=== PATIENT | male | born 1985 | race African-American/Black ===

== ENCOUNTER 2018-10-03 20:40 | Emergency (ER) | payer MEDICAID ==
[~2018-10-03] VITALS: Ht 165.1 cm; Wt 102.2 kg
[2018-10-03 21:18] LABS: BASOPHILS % (AUTO) 0.4 % (0.0-2.0); EOSINOPHILS % (AUTO) 0.1 % (1.0-6.0); HEMATOCRIT 47.4 % (41-53); HEMOGLOBIN 15.5 g/dL (13.5-17.5); LYMPHOCYTES # (AUTO) 3.2 K/uL (1.0-4.8); LYMPHOCYTES % (AUTO) 37.2 % (22.0-44.0); MEAN CORPUSCULAR HEMOGLOBIN 28.4 pg (26.0-34.0); MEAN CORPUSCULAR HGB CONC 32.7 G/dL (31.0-37.0); MEAN CORPUSCULAR VOLUME 87 fL (80-100); MONOCYTES # (AUTO) 0.5 K/uL (0.1-1.0); MONOCYTES % (AUTO) 6.1 % (2.0-9.0); NEUTROPHILS # (AUTO) 4.9 K/uL (1.8-7.7); NEUTROPHILS % (AUTO) 56.2 % (40.0-70.0); PLATELET COUNT (AUTO) 186 K/uL (150-450); RED BLOOD CELL COUNT(AUTO) 5.46 MIL/uL (4.50-5.90); RED CELL DISTRIBUTION WIDTH 14.7 % (11.5-14.5)
[2018-10-03 21:25] LABS: ANION GAP 11 mmol/L (8-16); CALCIUM, TOTAL 9.1 mg/dL (8.8-10.5); CARBON DIOXIDE 24 mmol/L (22-29); CHLORIDE 102 mmol/L (98-107); CREATININE 1.26 mg/dL (0.60-1.30); GLOMERULAR FILTR. RATE CALC > 60 mL/min (>60); GLUCOSE,RANDOM 132 mg/dL (70-110); POTASSIUM 3.7 mmol/L (3.5-5.1); SODIUM SERUM 137 mmol/L (136-145); UREA NITROGEN, BLOOD 14 mg/dL (7-18)
[2018-10-03 21:29] LABS: PROTHROMBIN TIME 10.7 SEC (9.4-11.6)
[2018-10-03] MEDS ORDERED: SODIUM CHLORIDE 0.9% 2,000 ML IV ONE (21:30)
[2018-10-03] MEDS ORDERED: FLUMAZENIL 0.1 MG/ML 5 ML VIAL IVP ONE (21:30)
[2018-10-03] MEDS ORDERED: NALOXONE HCL 1 MG/ML 2 ML SYG IVP ONE (21:30)
[2018-10-03 21:31] LABS: APPEARANCE,URINE CLEAR (CLEAR); BILIRUBIN,URINE NEGATIVE (NEGATIVE); GLUCOSE, URINE (UA) NEGATIVE (NEGATIVE); KETONES,URINE NEGATIVE (NEGATIVE); LEUKOCYTE ESTERASE ,URINE NEGATIVE (NEGATIVE); NITRATE,URINE NEGATIVE (NEGATIVE); OCCULT BLOOD,URINE NEGATIVE (NEGATIVE); PH,URINE 5.5 (5.0-8.0); PROTEIN,URINE NEGATIVE (NEGATIVE); UROBILINOGEN,URINE 0.2 mg/dL (<=1.0)
[2018-10-03 21:33] LABS: AMPHET/METH SCREEN,URINE NEGATIVE (NEGATIVE); BARBITURATE SCREEN, URINE NEGATIVE (NEGATIVE); BENZODIAZEPINES SCREEN,URINE NEGATIVE (NEGATIVE); CANNABINOID SCREEN,URINE POSITIVE (NEGATIVE); COCAINE SCREEN,URINE NEGATIVE (NEGATIVE); METHADONE SCREEN, URINE NEGATIVE (NEGATIVE); OPIATE SCREEN,URINE NEGATIVE (NEGATIVE)
[2018-10-03 21:36] LABS: PHENCYCLIDINE SCREEN,URINE POSITIVE (NEGATIVE)
[2018-10-03 21:40] LABS: B-TYPE NATRIURETIC PEPTIDE < 5 pg/mL (0-100); LACTIC ACID 2.9 mmol/L (0.4-2.0)
[2018-10-03 21:50] LABS: ALANINE AMINOTRANSFERASE 31 U/L (12-78); ALKALINE PHOSPHATASE 47 U/L (46-116); ASPARTATE AMINOTRANSFERASE 29 U/L (15-37); BILIRUBIN,TOTAL 1.3 mg/dL (0.1-1.0); CREATINE KINASE, TOTAL ONLY 324 U/L (39-308); TOTAL PROTEIN, SERUM 7.9 g/dL (6.4-8.2)
[2018-10-03 22:00] LABS: SALICYLATE < 2.8 mg/dL (2.8-20.0)
[2018-10-03 22:13] LABS: ACETAMINOPHEN < 2 mcg/mL (10-30)
[2018-10-03 23:31] VITALS: BP 157/88
[2018-10-04 08:51] LABS: GLUCOSE,POINT OF CARE 116 MG/DL (70-110)
== END 2018-10-04 | disposition home or self-care (01) ==
LOC: EMS 20:41
DX: R41.82 Altered mental status, unspecified (principal); F10.129 Alcohol abuse with intoxication, unspecified; F16.10 Hallucinogen abuse, uncomplicated; Y90.6 Blood alcohol level of 120-199 mg/100 ml
CPT/HCPCS: 36415; 51702; 71045; 80053; 80307; 81003; 82550; 82962; 83605; 83880; 84484; 85025; 85610; 85730; 87040; 93005; 96361; 96374; 96375; 99291; G0480 ×2; G0481; J2310; J3490; J7030

== ENCOUNTER 2020-04-12 19:00 | Inpatient (IN) | payer MEDICAID ==
[~2020-04-12] VITALS: Ht 165.1 cm; Wt 108.0 kg
[2020-04-12] MEDS ORDERED: OLAN10TA3 PO (19:18)
[2020-04-12] MEDS ORDERED: VENL25TA47 PO (19:18)
[2020-04-12] MEDS ORDERED: DIVA-85 PO (19:18)
[2020-04-12] MEDS ORDERED: ZOLPIDEM TARTRATE 10 MG TABLET PO PRN (21:30)
[2020-04-12] MEDS ORDERED: LORazepam 2 MG TABLET PO PRN (21:30)
[2020-04-12 22:11] VITALS: BP 146/82
[2020-04-13] MEDS ORDERED: DOCUSATE SODIUM 100 MG CAPSULE PO PRN (07:45)
[2020-04-13] MEDS ORDERED: MAGNESIUM HYDROXIDE SUSPENSION 30 ML UDCUP PO PRN (07:45)
[2020-04-13] MEDS ORDERED: BACITRACIN 28.4 GM OINTMENT TP PRN (07:45)
[2020-04-13] MEDS ORDERED: LOPERAMIDE HCL 2 MG CAPSULE PO PRN (07:45)
[2020-04-13] MEDS ORDERED: BENZOCAINE/MENTHOL LOZENGE MM PRN (07:45)
[2020-04-13] MEDS ORDERED: MAG HYDROX/AL HYDROX/SIMETH ES 30 ML SUSPENSION UDCUP PO PRN (07:45)
[2020-04-13] MEDS ORDERED: OMEPRAZOLE 20 MG CAPSULE PO PRN (07:45)
[2020-04-13] MEDS ORDERED: IBUPROFEN 600 MG TABLET PO PRN (07:45)
[2020-04-13] MEDS ORDERED: ALBUTEROL SULFATE HFA 90 MCG/PUFF 8 GM INHALER IH PRN (07:45)
[2020-04-13] MEDS ORDERED: CloNIDine HCL 0.1 MG TABLET PO PRN (07:45)
[2020-04-13] MEDS ORDERED: ONDANSETRON HCL 4 MG TABLET PO PRN (07:45)
[2020-04-13] MEDS ORDERED: PETROLATUM,WHITE 28 GM JELLY TP PRN (07:45)
[2020-04-13] MEDS ORDERED: ACETAMINOPHEN 325 MG TABLET PO PRN (07:45)
[2020-04-13 08:00] VITALS: BP 135/88
[2020-04-13] MEDS ORDERED: OLAN5TAB2 PO (09:48)
[2020-04-13] MEDS ORDERED: VENL-67 PO (09:52)
[2020-04-13] MEDS ORDERED: VENL-68 PO (09:52)
[2020-04-13] MEDS: VENLAFAXINE HCL 75 MG ER CAPSULE PO SCH (10:20)
[2020-04-13] MEDS: VENLAFAXINE HCL 150 MG ER CAPSULE PO SCH (10:32)
[2020-04-13 16:00] VITALS: BP 139/87
[2020-04-13] MEDS: DIVALPROEX SODIUM 250 MG ER TABLET PO SCH (20:15)
[2020-04-13] MEDS: OLANZapine 5 MG TABLET PO SCH (20:16)
[2020-04-14] MEDS: VENLAFAXINE HCL 75 MG ER CAPSULE PO SCH (09:03)
[2020-04-14] MEDS: VENLAFAXINE HCL 150 MG ER CAPSULE PO SCH (09:03)
[2020-04-14 16:00] VITALS: BP 139/99
[2020-04-14] MEDS: DIVALPROEX SODIUM 250 MG ER TABLET PO SCH (20:02)
[2020-04-14] MEDS: OLANZapine 5 MG TABLET PO SCH (20:02)
[2020-04-15 09:13] VITALS: BP 127/70
[2020-04-15] MEDS: VENLAFAXINE HCL 150 MG ER CAPSULE PO SCH (10:01)
[2020-04-15] MEDS: VENLAFAXINE HCL 75 MG ER CAPSULE PO SCH (10:02)
[2020-04-15 19:23] VITALS: BP 115/78
[2020-04-15] MEDS: DIVALPROEX SODIUM 250 MG ER TABLET PO SCH (20:33)
[2020-04-15] MEDS: OLANZapine 5 MG TABLET PO SCH (20:33)
[2020-04-16] MEDS: VENLAFAXINE HCL 75 MG ER CAPSULE PO SCH (08:41)
[2020-04-16] MEDS: VENLAFAXINE HCL 150 MG ER CAPSULE PO SCH (08:41)
[2020-04-16 09:49] VITALS: BP 151/105
[2020-04-16 18:31] VITALS: BP 118/62
[2020-04-16] MEDS: DIVALPROEX SODIUM 250 MG ER TABLET PO SCH (20:19)
[2020-04-16] MEDS: OLANZapine 5 MG TABLET PO SCH (20:19)
[2020-04-17] MEDS: VENLAFAXINE HCL 150 MG ER CAPSULE PO SCH (08:53)
[2020-04-17] MEDS: VENLAFAXINE HCL 75 MG ER CAPSULE PO SCH (08:54)
[2020-04-17 09:02] VITALS: BP 150/98
[2020-04-17 16:00] VITALS: BP 153/69
[2020-04-17] MEDS: OLANZapine 5 MG TABLET PO SCH (20:35)
[2020-04-17] MEDS: DIVALPROEX SODIUM 250 MG ER TABLET PO SCH (20:35)
[2020-04-17] MEDS: HALOPERIDOL 5 MG TABLET PO PRN (23:57)
[2020-04-18 00:04] VITALS: BP 132/85
[2020-04-18 08:32] VITALS: BP 141/99
[2020-04-18] MEDS: VENLAFAXINE HCL 150 MG ER CAPSULE PO SCH (09:15)
[2020-04-18] MEDS: VENLAFAXINE HCL 75 MG ER CAPSULE PO SCH (09:16)
[2020-04-18 16:00] VITALS: BP 126/83
[2020-04-18] MEDS: OLANZapine 5 MG TABLET PO SCH (20:02)
[2020-04-18] MEDS: DIVALPROEX SODIUM 250 MG ER TABLET PO SCH (20:02)
[2020-04-19 08:00] VITALS: BP 103/57
[2020-04-19 08:40] VITALS: BP 105/57
[2020-04-19] MEDS: VENLAFAXINE HCL 150 MG ER CAPSULE PO SCH (09:28)
[2020-04-19] MEDS: VENLAFAXINE HCL 75 MG ER CAPSULE PO SCH (09:29)
[2020-04-19 16:52] VITALS: BP 150/90
[2020-04-19] MEDS: OLANZapine 5 MG TABLET PO SCH (20:19)
[2020-04-19] MEDS: DIVALPROEX SODIUM 250 MG ER TABLET PO SCH (20:19)
[2020-04-20] MEDS: VENLAFAXINE HCL 75 MG ER CAPSULE PO SCH (08:40)
[2020-04-20] MEDS: VENLAFAXINE HCL 150 MG ER CAPSULE PO SCH (08:40)
[2020-04-20 08:54] VITALS: BP 100/75
[2020-04-20 12:04] VITALS: BP 109/75
[2020-04-20] MEDS: HALOPERIDOL 5 MG TABLET PO PRN (12:30)
[2020-04-20 16:01] VITALS: BP 114/70
[2020-04-20] MEDS: DIVALPROEX SODIUM 250 MG ER TABLET PO SCH (20:43)
[2020-04-20] MEDS: OLANZapine 5 MG TABLET PO SCH (20:43)
[2020-04-21 08:00] VITALS: BP 139/99
[2020-04-21] MEDS: VENLAFAXINE HCL 75 MG ER CAPSULE PO SCH (08:10)
[2020-04-21] MEDS: VENLAFAXINE HCL 150 MG ER CAPSULE PO SCH (08:10)
[2020-04-21 16:25] VITALS: BP 108/88
[2020-04-21] MEDS: OLANZapine 5 MG TABLET PO SCH (20:20)
[2020-04-21] MEDS: DIVALPROEX SODIUM 250 MG ER TABLET PO SCH (20:20)
[2020-04-22] MEDS: VENLAFAXINE HCL 150 MG ER CAPSULE PO SCH (07:50)
[2020-04-22] MEDS: VENLAFAXINE HCL 75 MG ER CAPSULE PO SCH (07:50)
[2020-04-22 08:00] VITALS: BP 119/72
== END 2020-04-22 10:00 | disposition home or self-care (01) | DRG 885 ==
LOC: EMS 19:01 → 3EI 21:00
PROVIDERS: ADMIT Psychiatry & Neurology Psychiatry; ATTEND Psychiatry & Neurology Psychiatry
DX: F25.9 Schizoaffective disorder, unspecified (principal); R45.851 Suicidal ideations; I10 Essential (primary) hypertension; G47.00 Insomnia, unspecified; K59.00 Constipation, unspecified; F41.9 Anxiety disorder, unspecified; Z91.5 Personal history of self-harm
CPT/HCPCS: 93005

== ENCOUNTER 2020-05-09 10:41 | Inpatient (IN) | payer MEDICAID ==
[~2020-05-09] VITALS: Ht 165.1 cm; Wt 108.0 kg
[~2020-05-09 10:41] MED LIST: DIVA-85 PO; OLAN5TAB2 PO; VENL-67 PO; VENL-68 PO
[2020-05-09 12:25] LABS: BASOPHILS % (AUTO) 0.8 % (0.0-2.0); EOSINOPHILS % (AUTO) 0.5 % (1.0-6.0); HEMATOCRIT 47.2 % (41-53); HEMOGLOBIN 15.7 g/dL (13.5-17.5); LYMPHOCYTES # (AUTO) 2.5 K/uL (1.0-4.8); LYMPHOCYTES % (AUTO) 24.8 % (22.0-44.0); MEAN CORPUSCULAR HEMOGLOBIN 29.1 pg (26.0-34.0); MEAN CORPUSCULAR HGB CONC 33.2 G/dL (31.0-37.0); MEAN CORPUSCULAR VOLUME 88 fL (80-100); MONOCYTES # (AUTO) 0.7 K/uL (0.1-1.0); MONOCYTES % (AUTO) 7.2 % (2.0-9.0); NEUTROPHILS # (AUTO) 6.8 K/uL (1.8-7.7); NEUTROPHILS % (AUTO) 66.7 % (40.0-70.0); PLATELET COUNT (AUTO) 249 K/uL (150-450); RED BLOOD CELL COUNT(AUTO) 5.39 MIL/uL (4.50-5.90); RED CELL DISTRIBUTION WIDTH 15.4 % (11.5-14.5)
[2020-05-09 12:34] LABS: ANION GAP 12 mmol/L (8-16); CALCIUM, TOTAL 9.2 mg/dL (8.8-10.5); CARBON DIOXIDE 23 mmol/L (22-29); CHLORIDE 102 mmol/L (98-107); CREATININE 1.67 mg/dL (0.60-1.30); GLOMERULAR FILTR. RATE CALC 57 mL/min (>60); GLUCOSE,RANDOM 144 mg/dL (70-110); POTASSIUM 3.9 mmol/L (3.5-5.1); SODIUM SERUM 137 mmol/L (136-145); UREA NITROGEN, BLOOD 13 mg/dL (7-18)
[2020-05-09 13:37] LABS: AMPHET/METH SCREEN,URINE POSITIVE (NEGATIVE); BARBITURATE SCREEN, URINE NEGATIVE (NEGATIVE); BENZODIAZEPINES SCREEN,URINE NEGATIVE (NEGATIVE); CANNABINOID SCREEN,URINE POSITIVE (NEGATIVE); COCAINE SCREEN,URINE NEGATIVE (NEGATIVE); METHADONE SCREEN, URINE NEGATIVE (NEGATIVE); OPIATE SCREEN,URINE NEGATIVE (NEGATIVE)
[2020-05-09 13:39] LABS: PHENCYCLIDINE SCREEN,URINE NEGATIVE (NEGATIVE)
[2020-05-09] MEDS ORDERED: HALOPERIDOL 5 MG TABLET PO PRN (16:30)
[2020-05-09] MEDS: LORazepam 2 MG TABLET PO PRN (18:58)
[2020-05-09] MEDS: ZOLPIDEM TARTRATE 10 MG TABLET PO PRN (20:44)
[2020-05-09] MEDS ORDERED: PROMETHAZINE HCL 25 MG TABLET PO PRN (23:30)
[2020-05-09] MEDS ORDERED: ACETAMINOPHEN 325 MG TABLET PO PRN (23:30)
[2020-05-09] MEDS ORDERED: TUBERCULIN, PURIFIED PROTEIN DERIVATIVE 5 TU/0.1 ML SYRINGE ID ONE (23:30)
[2020-05-09] MEDS ORDERED: MAG HYDROX/AL HYDROX/SIMETH ES 30 ML SUSPENSION UDCUP PO PRN (23:30)
[2020-05-09] MEDS ORDERED: MAGNESIUM HYDROXIDE SUSPENSION 30 ML UDCUP PO PRN (23:30)
[2020-05-09] MEDS ORDERED: LOPERAMIDE HCL 2 MG CAPSULE PO PRN (23:30)
[2020-05-10] MEDS ORDERED: PETROLATUM,WHITE 28 GM JELLY TP PRN (00:30)
[2020-05-10] MEDS ORDERED: BACITRACIN 28 GM OINTMENT TP PRN (00:30)
[2020-05-10] MEDS ORDERED: DOCUSATE SODIUM 100 MG CAPSULE PO PRN (00:30)
[2020-05-10] MEDS ORDERED: IBUPROFEN 600 MG TABLET PO PRN (00:30)
[2020-05-10] MEDS ORDERED: ALBUTEROL SULFATE HFA 90 MCG/PUFF 8 GM INHALER IH PRN (00:30)
[2020-05-10] MEDS ORDERED: OMEPRAZOLE 20 MG CAPSULE PO PRN (00:30)
[2020-05-10] MEDS ORDERED: BENZOCAINE/MENTHOL LOZENGE PO PRN (00:30)
[2020-05-10 01:47] VITALS: BP 126/84
[2020-05-10] MEDS ORDERED: PNEUMOCOCCAL VACCINE POLYVALENT 0.5 ML VIAL [PPSV23] IM ONE (02:15)
[2020-05-10] MEDS: CloNIDine HCL 0.1 MG TABLET PO PRN (08:06)
[2020-05-10] MEDS: LORazepam 2 MG TABLET PO PRN ×2 (08:06→15:01)
[2020-05-10 08:24] LABS: CHOL/HDL RATIO 6.8 (4.2-7.3)
[2020-05-10 09:07] VITALS: BP 142/111
[2020-05-10 10:00] VITALS: BP 150/99
[2020-05-10 16:19] VITALS: BP 145/89
[2020-05-11] MEDS: LORazepam 2 MG TABLET PO PRN (04:02)
[2020-05-11 04:49] VITALS: BP 135/91
[2020-05-11] MEDS: RisperiDONE 1 MG TABLET PO SCH ×2 (08:29→16:16)
[2020-05-11] MEDS: VENLAFAXINE HCL 150 MG ER CAPSULE PO SCH (08:29)
[2020-05-11 08:45] LABS: ANION GAP 7 mmol/L (8-16); CALCIUM, TOTAL 9.1 mg/dL (8.8-10.5); CARBON DIOXIDE 29 mmol/L (22-29); CHLORIDE 100 mmol/L (98-107); CREATININE 1.38 mg/dL (0.60-1.30); GLOMERULAR FILTR. RATE CALC > 60 mL/min (>60); GLUCOSE,RANDOM 114 mg/dL (70-110); SODIUM SERUM 136 mmol/L (136-145); THYROID STIMULATING HORMONE 1.12 uIU/mL (0.36-3.74); UREA NITROGEN, BLOOD 21 mg/dL (7-18)
[2020-05-11 16:09] VITALS: BP 138/85
[2020-05-12 01:55] VITALS: BP 131/78
[2020-05-12] MEDS: RisperiDONE 1 MG TABLET PO SCH ×3 (09:00→16:43)
[2020-05-12 09:04] VITALS: BP 143/98
[2020-05-12] MEDS: VENLAFAXINE HCL 150 MG ER CAPSULE PO SCH (09:39)
[2020-05-12] MEDS: ZOLPIDEM TARTRATE 10 MG TABLET PO PRN (20:18)
[2020-05-13 06:17] VITALS: BP 130/79
[2020-05-13] MEDS: VENLAFAXINE HCL 150 MG ER CAPSULE PO SCH (08:16)
[2020-05-13] MEDS: RisperiDONE 1 MG TABLET PO SCH ×2 (08:17→16:43)
[2020-05-13 17:15] VITALS: BP 122/70
[2020-05-14 00:25] VITALS: BP 119/67
[2020-05-14] MEDS: ZOLPIDEM TARTRATE 10 MG TABLET PO PRN ×2 (01:15→21:10)
[2020-05-14] MEDS: VENLAFAXINE HCL 75 MG ER CAPSULE PO SCH (08:29)
[2020-05-14] MEDS: RisperiDONE 1 MG TABLET PO SCH ×2 (09:00→17:00)
[2020-05-14 16:42] VITALS: BP 124/71
[2020-05-15] MEDS: LORazepam 2 MG TABLET PO PRN (04:42)
[2020-05-15 05:00] VITALS: BP 130/91
[2020-05-15 08:15] VITALS: BP 130/94
[2020-05-15] MEDS: VENLAFAXINE HCL 75 MG ER CAPSULE PO SCH (08:21)
[2020-05-15] MEDS: RisperiDONE 1 MG TABLET PO SCH ×2 (08:24→17:00)
[2020-05-15 16:30] VITALS: BP 115/65
[2020-05-15] MEDS: ZOLPIDEM TARTRATE 10 MG TABLET PO PRN (21:02)
[2020-05-16 00:02] VITALS: BP 137/76
[2020-05-16] MEDS: LORazepam 2 MG TABLET PO PRN (00:42)
[2020-05-16] MEDS: VENLAFAXINE HCL 75 MG ER CAPSULE PO SCH (08:54)
[2020-05-16] MEDS: RisperiDONE 1 MG TABLET PO SCH ×2 (08:55→16:10)
[2020-05-16 09:15] VITALS: BP 130/75
[2020-05-16 16:00] VITALS: BP 128/89
[2020-05-16] MEDS: ZOLPIDEM TARTRATE 10 MG TABLET PO PRN (21:19)
[2020-05-17 00:31] VITALS: BP 132/77
[2020-05-17 02:10] VITALS: BP_SYST 138; BP_SYST 141; BP_DIAS 112; BP_DIAS 113
[2020-05-17] MEDS: CloNIDine HCL 0.1 MG TABLET PO PRN (02:11)
[2020-05-17 03:11] VITALS: BP 116/73
[2020-05-17] MEDS: VENLAFAXINE HCL 75 MG ER CAPSULE PO SCH (08:27)
[2020-05-17] MEDS: RisperiDONE 1 MG TABLET PO SCH (08:30)
[2020-05-17 10:46] VITALS: BP 131/82
[2020-05-17] MEDS: ZOLPIDEM TARTRATE 10 MG TABLET PO PRN (22:08)
[2020-05-18] VITALS: BP 122/75
[2020-05-18] MEDS: LORazepam 2 MG TABLET PO PRN ×2 (03:21→16:16)
[2020-05-18] MEDS: VENLAFAXINE HCL 75 MG ER CAPSULE PO SCH (08:36)
[2020-05-18 13:03] VITALS: BP 121/83
[2020-05-18 16:41] VITALS: BP 139/90
[2020-05-19] VITALS: BP 104/60
[2020-05-19] MEDS: ZOLPIDEM TARTRATE 10 MG TABLET PO PRN (02:51)
[2020-05-19] MEDS: VENLAFAXINE HCL 75 MG ER CAPSULE PO SCH (08:03)
[2020-05-19 08:12] VITALS: BP 143/83
[2020-05-19] MEDS: OMEGA-3/DHA/EPA/FISH OIL 1,000 MG CAPSULE PO SCH (09:00)
[2020-05-19 16:01] VITALS: BP 139/85
[2020-05-19] MEDS: SIMVASTATIN 10 MG TABLET PO SCH (20:13)
[2020-05-20 00:13] VITALS: BP 130/90
[2020-05-20] MEDS: ZOLPIDEM TARTRATE 10 MG TABLET PO PRN (00:20)
[2020-05-20 08:08] VITALS: BP 132/90
[2020-05-20] MEDS: VENLAFAXINE HCL 75 MG ER CAPSULE PO SCH (08:22)
[2020-05-20] MEDS: OMEGA-3/DHA/EPA/FISH OIL 1,000 MG CAPSULE PO SCH (08:22)
[2020-05-20] MEDS ORDERED: BUPR-93 PO (12:50)
[2020-05-20] MEDS ORDERED: RISP3TAB44 PO (12:50)
[2020-05-20] MEDS ORDERED: ROPI2TAB26 PO (12:50)
[2020-05-20] MEDS ORDERED: TEMA15CA PO (12:50)
[2020-05-20] MEDS ORDERED: LITH300CRT PO (12:50)
[2020-05-20 16:03] VITALS: BP 135/62
[2020-05-20] MEDS: SIMVASTATIN 10 MG TABLET PO SCH (19:50)
[2020-05-21 00:45] VITALS: BP 129/75
[2020-05-21] MEDS: ZOLPIDEM TARTRATE 10 MG TABLET PO PRN (02:19)
[2020-05-21] MEDS: OMEGA-3/DHA/EPA/FISH OIL 1,000 MG CAPSULE PO SCH (08:18)
[2020-05-21] MEDS: VENLAFAXINE HCL 75 MG ER CAPSULE PO SCH (08:19)
[2020-05-21 09:20] VITALS: BP 130/74
[2020-05-21 16:03] VITALS: BP 127/72
[2020-05-21] MEDS: SIMVASTATIN 10 MG TABLET PO SCH (20:11)
[2020-05-22] MEDS: ZOLPIDEM TARTRATE 10 MG TABLET PO PRN (00:08)
[2020-05-22 01:35] VITALS: BP 130/75
[2020-05-22] MEDS: VENLAFAXINE HCL 75 MG ER CAPSULE PO SCH (08:08)
[2020-05-22] MEDS: OMEGA-3/DHA/EPA/FISH OIL 1,000 MG CAPSULE PO SCH (08:08)
[2020-05-22 08:27] VITALS: BP 133/81
[2020-05-22 08:28] LABS: HEMOGLOBIN A1C 5.9 % (3.8-5.6)
[2020-05-22 08:41] LABS: ANION GAP 7 mmol/L (8-16); CALCIUM, TOTAL 9.4 mg/dL (8.8-10.5); CARBON DIOXIDE 29 mmol/L (22-29); CHLORIDE 100 mmol/L (98-107); CREATININE 1.31 mg/dL (0.60-1.30); GLOMERULAR FILTR. RATE CALC > 60 mL/min (>60); GLUCOSE,RANDOM 98 mg/dL (70-110); POTASSIUM 4.5 mmol/L (3.5-5.1); SODIUM SERUM 136 mmol/L (136-145); UREA NITROGEN, BLOOD 17 mg/dL (7-18)
[2020-05-22] MEDS ORDERED: SIMV-259 PO (14:19)
[2020-05-22] MEDS ORDERED: VENL-67 PO (14:19)
== END 2020-05-22 17:00 | disposition home or self-care (01) | DRG 750 ==
LOC: EMS 10:48 → B2S 16:23
PROVIDERS: ADMIT Psychiatry & Neurology Psychiatry; ATTEND Psychiatry & Neurology Psychiatry
DX: F25.1 Schizoaffective disorder, depressive type (principal); F15.10 Other stimulant abuse, uncomplicated; F12.10 Cannabis abuse, uncomplicated; N18.9 Chronic kidney disease, unspecified; I12.9 Hypertensive chronic kidney disease with stage 1 through stage 4 chronic kidney disease, or unspecified chronic kidney disease; R45.851 Suicidal ideations; E78.5 Hyperlipidemia, unspecified; K59.00 Constipation, unspecified; E78.00 Pure hypercholesterolemia, unspecified; G47.00 Insomnia, unspecified; F41.9 Anxiety disorder, unspecified; F19.10 Other psychoactive substance abuse, uncomplicated; Z91.5 Personal history of self-harm; Z72.0 Tobacco use
CPT/HCPCS: 83036; 84443; 87081; 87426; 90732; G0480

== ENCOUNTER 2020-08-04 11:47 | Emergency (ER) | payer MEDICAID ==
[~2020-08-04] VITALS: Ht 167.6 cm; Wt 86.4 kg
[~2020-08-04 11:47] MED LIST changes: -DIVA-85 PO; -OLAN5TAB2 PO; +SIMV-259 PO; -VENL-68 PO
[2020-08-04 11:49] VITALS: BP 144/94
[2020-08-04] MEDS ORDERED: VENLAFAXINE HCL 75 MG ER CAPSULE PO ONE (12:15)
[2020-08-04] MEDS ORDERED: LORazepam 1 MG TABLET PO ONE (12:15)
[2020-08-04] MEDS ORDERED: DIVALPROEX SODIUM 250 MG ER TABLET PO ONE (12:15)
[2020-08-04] MEDS ORDERED: OLANZapine 5 MG TABLET PO ONE (12:15)
== END 2020-08-04 14:12 | disposition home or self-care (01) ==
LOC: EMS 11:56
DX: F25.9 Schizoaffective disorder, unspecified (principal); R45.851 Suicidal ideations; F15.10 Other stimulant abuse, uncomplicated; I10 Essential (primary) hypertension; Z79.899 Other long term (current) drug therapy
CPT/HCPCS: Z7502; Z7610

== ENCOUNTER 2020-09-10 15:22 | Inpatient (IN) | payer MEDICAID ==
[~2020-09-10] VITALS: Ht 165.1 cm; Wt 99.3 kg
[2020-09-10 18:13] LABS: AMPHET/METH SCREEN,URINE POSITIVE (NEGATIVE); BARBITURATE SCREEN, URINE NEGATIVE (NEGATIVE); BENZODIAZEPINES SCREEN,URINE NEGATIVE (NEGATIVE); CANNABINOID SCREEN,URINE NEGATIVE (NEGATIVE); COCAINE SCREEN,URINE NEGATIVE (NEGATIVE); METHADONE SCREEN, URINE NEGATIVE (NEGATIVE); OPIATE SCREEN,URINE NEGATIVE (NEGATIVE); PHENCYCLIDINE SCREEN,URINE NEGATIVE (NEGATIVE)
[2020-09-10 19:08] LABS: BASOPHILS % (AUTO) 0.5 % (0.0-2.0); EOSINOPHILS % (AUTO) 0.9 % (1.0-6.0); HEMATOCRIT 43.9 % (41-53); HEMOGLOBIN 14.2 g/dL (13.5-17.5); LYMPHOCYTES # (AUTO) 2.6 K/uL (1.0-4.8); LYMPHOCYTES % (AUTO) 34.2 % (22.0-44.0); MEAN CORPUSCULAR HEMOGLOBIN 28.2 pg (26.0-34.0); MEAN CORPUSCULAR HGB CONC 32.4 G/dL (31.0-37.0); MEAN CORPUSCULAR VOLUME 87 fL (80-100); MONOCYTES # (AUTO) 0.6 K/uL (0.1-1.0); MONOCYTES % (AUTO) 8.1 % (2.0-9.0); NEUTROPHILS # (AUTO) 4.2 K/uL (1.8-7.7); NEUTROPHILS % (AUTO) 56.3 % (40.0-70.0); PLATELET COUNT (AUTO) 228 K/uL (150-450); RED BLOOD CELL COUNT(AUTO) 5.05 MIL/uL (4.50-5.90); RED CELL DISTRIBUTION WIDTH 14.7 % (11.5-14.5)
[2020-09-10 19:27] LABS: ANION GAP 10 mmol/L (8-16); CALCIUM, TOTAL 9.3 mg/dL (8.8-10.5); CARBON DIOXIDE 27 mmol/L (22-29); CHLORIDE 101 mmol/L (98-107); CREATININE 1.27 mg/dL (0.60-1.30); GLOMERULAR FILTR. RATE CALC > 60 mL/min (>60); GLUCOSE,RANDOM 95 mg/dL (70-110); POTASSIUM 3.3 mmol/L (3.5-5.1); SODIUM SERUM 138 mmol/L (136-145); UREA NITROGEN, BLOOD 8 mg/dL (7-18)
[2020-09-10 19:38] LABS: ALANINE AMINOTRANSFERASE 24 U/L (12-78); ALBUMIN 3.8 g/dL (3.4-5.0); ALKALINE PHOSPHATASE 77 U/L (46-116); ASPARTATE AMINOTRANSFERASE 14 U/L (15-37); BILIRUBIN,TOTAL 0.8 mg/dL (0.1-1.0); TOTAL PROTEIN, SERUM 7.9 g/dL (6.4-8.2)
[2020-09-10] MEDS ORDERED: OLANZapine 5 MG RAPDIS TABLET PO PRN (20:00)
[2020-09-10] MEDS ORDERED: LORazepam 2 MG TABLET PO PRN (20:00)
[2020-09-10] MEDS ORDERED: TUBERCULIN, PURIFIED PROTEIN DERIVATIVE 5 TU/0.1 ML SYRINGE ID ONE (20:00)
[2020-09-10] MEDS ORDERED: MAGNESIUM HYDROXIDE SUSPENSION 30 ML UDCUP PO PRN (20:00)
[2020-09-10] MEDS ORDERED: MAG HYDROX/AL HYDROX/SIMETH ES 30 ML SUSPENSION UDCUP PO PRN (20:00)
[2020-09-10] MEDS ORDERED: LOPERAMIDE HCL 2 MG CAPSULE PO PRN (20:00)
[2020-09-10] MEDS ORDERED: PROMETHAZINE HCL 25 MG TABLET PO PRN (20:00)
[2020-09-10] MEDS ORDERED: ACETAMINOPHEN 325 MG TABLET PO PRN (20:00)
[2020-09-10] MEDS ORDERED: GuaiFENesin/D-METHORPHAN [SUGAR-FREE] 200-20MG/10 ML SYRUP UDCUP PO PRN (20:00)
[2020-09-10] MEDS ORDERED: VENLAFAXINE HCL 75 MG ER CAPSULE PO ONE (20:00)
[2020-09-10] MEDS ORDERED: HydrOXYzine PAMOATE 50 MG CAPSULE PO PRN (20:00)
[2020-09-10] MEDS ORDERED: POTASSIUM CHLORIDE 20 MEQ ER TABLET PO ONE (20:15)
[2020-09-10 20:54] LABS: COVID AG,FIA SOURCE NASOPHARYNGEAL
[2020-09-10] MEDS ORDERED: INFLUENZA VIRUS VACCINE QVS 2020-21 (6MO+)/PF 60 MCG/0.5 ML SYRINGE IM ONE (23:45)
[2020-09-10] MEDS ORDERED: PNEUMOCOCCAL VACCINE POLYVALENT 0.5 ML VIAL [PPSV23] IM ONE (23:45)
[2020-09-11 01:16] VITALS: BP 130/87
[2020-09-11 08:30] VITALS: BP 110/67
[2020-09-11] MEDS ORDERED: VENLAFAXINE HCL 75 MG ER CAPSULE PO SCH (09:00)
[2020-09-11] MEDS: MULTIVITAMINS WITH MINERALS, THERAPEUTIC TABLET PO SCH (09:56)
[2020-09-11] MEDS: FOLIC ACID 1 MG TABLET PO SCH (09:56)
[2020-09-11] MEDS: NALTREXONE HCL 50 MG TABLET PO SCH (09:56)
[2020-09-11] MEDS: THIAMINE 100 MG TABLET PO SCH ×3 (09:57→16:56)
[2020-09-11] MEDS: OMEGA-3/DHA/EPA/FISH OIL 1,000 MG CAPSULE PO SCH (09:57)
[2020-09-11 16:19] VITALS: BP 121/69
[2020-09-11] MEDS: OLANZapine 5 MG RAPDIS TABLET PO SCH (21:00)
[2020-09-11] MEDS: DIVALPROEX SODIUM 500 MG ER TABLET PO SCH (21:09)
[2020-09-12 06:10] VITALS: BP 146/94
[2020-09-12 08:10] VITALS: BP 111/71
[2020-09-12] MEDS: OMEGA-3/DHA/EPA/FISH OIL 1,000 MG CAPSULE PO SCH (10:28)
[2020-09-12] MEDS: NALTREXONE HCL 50 MG TABLET PO SCH (10:28)
[2020-09-12] MEDS: FOLIC ACID 1 MG TABLET PO SCH (10:30)
[2020-09-12] MEDS: MULTIVITAMINS WITH MINERALS, THERAPEUTIC TABLET PO SCH (10:30)
[2020-09-12] MEDS: THIAMINE 100 MG TABLET PO SCH ×2 (10:30→16:13)
[2020-09-12] MEDS: VENLAFAXINE HCL 75 MG ER CAPSULE PO SCH (10:30)
[2020-09-12 16:10] VITALS: BP 123/73
[2020-09-12] MEDS: DIVALPROEX SODIUM 500 MG ER TABLET PO SCH (21:00)
[2020-09-12] MEDS: OLANZapine 5 MG RAPDIS TABLET PO SCH (21:00)
[2020-09-13 04:49] VITALS: BP 133/76
[2020-09-13] MEDS: OMEGA-3/DHA/EPA/FISH OIL 1,000 MG CAPSULE PO SCH (09:00)
[2020-09-13] MEDS: FOLIC ACID 1 MG TABLET PO SCH (09:00)
[2020-09-13] MEDS: MULTIVITAMINS WITH MINERALS, THERAPEUTIC TABLET PO SCH (09:00)
[2020-09-13] MEDS: VENLAFAXINE HCL 75 MG ER CAPSULE PO SCH (09:00)
[2020-09-13] MEDS: NALTREXONE HCL 50 MG TABLET PO SCH (09:00)
[2020-09-13] MEDS: THIAMINE 100 MG TABLET PO SCH ×2 (09:00→17:00)
[2020-09-13] MEDS ORDERED: LORazepam 2 MG/ML VIAL ONE (14:43)
[2020-09-13] MEDS ORDERED: DiphenhydrAMINE HCL 50 MG/ML VIAL ONE (14:43)
[2020-09-13] MEDS ORDERED: HALOPERIDOL LACTATE 5 MG/ML VIAL ONE (14:44)
[2020-09-13] MEDS ORDERED: DiphenhydrAMINE HCL 50 MG/ML VIAL IM ONE (15:30)
[2020-09-13] MEDS ORDERED: LORazepam 2 MG/ML VIAL IM ONE (15:30)
[2020-09-13] MEDS ORDERED: HALOPERIDOL LACTATE 5 MG/ML VIAL IM ONE (15:30)
[2020-09-13] MEDS: OLANZapine 5 MG RAPDIS TABLET PO SCH (21:00)
[2020-09-13] MEDS: DIVALPROEX SODIUM 500 MG ER TABLET PO SCH (21:00)
[2020-09-14 08:05] VITALS: BP 127/75
[2020-09-14] MEDS: NALTREXONE HCL 50 MG TABLET PO SCH (09:24)
[2020-09-14] MEDS: VENLAFAXINE HCL 75 MG ER CAPSULE PO SCH (09:24)
[2020-09-14] MEDS: OMEGA-3/DHA/EPA/FISH OIL 1,000 MG CAPSULE PO SCH (09:25)
[2020-09-14] MEDS: FOLIC ACID 1 MG TABLET PO SCH (09:25)
[2020-09-14] MEDS: THIAMINE 100 MG TABLET PO SCH ×2 (09:25→17:00)
[2020-09-14] MEDS: MULTIVITAMINS WITH MINERALS, THERAPEUTIC TABLET PO SCH (09:25)
[2020-09-14 16:06] VITALS: BP 130/78
[2020-09-14] MEDS: DIVALPROEX SODIUM 500 MG ER TABLET PO SCH ×2 (20:41→22:08)
[2020-09-14] MEDS ORDERED: DiphenhydrAMINE HCL 25 MG CAPSULE PO SCH (21:00)
[2020-09-14] MEDS ORDERED: OLANZapine 10 MG RAPDIS TABLET PO SCH (21:00)
[2020-09-15 02:02] VITALS: BP 133/82
[2020-09-15 08:11] VITALS: BP 109/57
[2020-09-15] MEDS: MULTIVITAMINS WITH MINERALS, THERAPEUTIC TABLET PO SCH (09:00)
[2020-09-15] MEDS: FOLIC ACID 1 MG TABLET PO SCH (09:00)
[2020-09-15] MEDS: OMEGA-3/DHA/EPA/FISH OIL 1,000 MG CAPSULE PO SCH (09:00)
[2020-09-15] MEDS: THIAMINE 100 MG TABLET PO SCH ×2 (09:00→16:40)
[2020-09-15] MEDS: NALTREXONE HCL 50 MG TABLET PO SCH (09:00)
[2020-09-15] MEDS ORDERED: OMEG-135 PO (15:27)
[2020-09-15] MEDS ORDERED: OLAN10TA22 PO (15:27)
[2020-09-15] MEDS ORDERED: DIVA-80 PO (15:27)
[2020-09-15] MEDS ORDERED: DIPH25 PO (15:27)
[2020-09-15] MEDS ORDERED: NALT50TA PO (15:27)
[2020-09-15 16:06] VITALS: BP 100/58
== END 2020-09-15 20:54 | disposition home or self-care (01) | DRG 750 ==
LOC: EMS 15:24 → B2S 19:49 → B3A 09-13 13:25
PROVIDERS: ADMIT Psychiatry & Neurology Psychiatry; ATTEND Psychiatry & Neurology Psychiatry
DX: F25.0 Schizoaffective disorder, bipolar type (principal); F31.9 Bipolar disorder, unspecified; R45.851 Suicidal ideations; E87.6 Hypokalemia; I12.9 Hypertensive chronic kidney disease with stage 1 through stage 4 chronic kidney disease, or unspecified chronic kidney disease; N18.9 Chronic kidney disease, unspecified; Z91.14 Patient's other noncompliance with medication regimen; Z87.891 Personal history of nicotine dependence; S51.812A Laceration without foreign body of left forearm, initial encounter; X78.8XXA Intentional self-harm by other sharp object, initial encounter; Y93.89 Activity, other specified; Y92.89 Other specified places as the place of occurrence of the external cause; Y99.8 Other external cause status; Z20.828 Contact with and (suspected) exposure to other viral communicable diseases; Z28.21 Immunization not carried out because of patient refusal
CPT/HCPCS: 87426; G0480; J1200; J1630; J2060